=== PATIENT | female | born 1955 | race African-American/Black ===

== ENCOUNTER 2020-05-31 19:44 | Inpatient (IN) | payer OTHER, MEDICAID ==
[~2020-05-31] VITALS: Ht 167.6 cm; Wt 96.0 kg
[2020-05-31 20:59] LABS: Hematocrit 22.8 % (36.0-46.0); INR 1.04 (0.9-1.15); Mean Corpuscular Hemoglobin 20.2 pg (28.0-32.0); Mean Corpuscular Hgb Conc. 29.6 g/dL (32.0-36.0); Mean Corpuscular Volume 68.1 fL (80.0-100.0); Partial Thromboplastin Time 24.7 sec (23.0-31.2); Platelet Count (auto) 653 10^3/uL (140-450); Red Blood Cells 3.35 10^6/uL (4.0-5.20)
[2020-05-31] MEDS ORDERED: ASPirin 81 mg TAB PO ONE (21:00)
[2020-05-31 21:03] LABS: Red Cell Distribution Width 22.1 % (11.8-14.3)
[2020-05-31 21:05] LABS: Albumin 3.7 g/dL (3.4-5.0); Anion Gap 8 (5-15); Blood Urea Nitrogen 7 mg/dL (7-18); Calcium 8.5 mg/dL (8.5-10.1); Carbon Dioxide 22 mmol/L (21-32); Chloride 105 mmol/L (98-107); Glucose 76 mg/dL (74-106); Magnesium 2.1 mg/dL (1.6-2.6); Potassium 3.2 mmol/L (3.5-5.1); Sodium 135 mmol/L (136-145)
[2020-05-31 21:06] LABS: Hemoglobin 6.7 g/dL (12.2-16.2)
[2020-05-31 21:07] LABS: Band Neutrophils % (manual) 0; Basophils % (manual) 0 (0.0-2.0); Blast Cells 0; Eosinophils % (manual) 0 (0-7); Metamyelocytes % 0; Myelocytes % 0; Promyelocytes % 0; Reactive Lymphocytes 0
[2020-05-31 21:12] LABS: Alanine Aminotransferase 13 U/L (13-56); Alkaline Phosphatase 87 U/L (45-117); Aspartate Aminotransferase 8 U/L (15-37); BUN/Creatinine Ratio 8.6; Bilirubin, Total 0.5 mg/dL (0.2-1.0); GFR African American 92 mL/min; GFR Non-African American 76 mL/min
[2020-05-31 22:23] LABS: Urine Bacteria NONE SEEN /hpf (None Seen); Urine Blood TRACE /uL (Negative); Urine Specific Gravity 1.002 (1.001-1.035); Urine WBC <1 /hpf (0 - 5)
[2020-05-31 23:11] LABS: Lymphocytes % (manual) 31 (10.0-50.0); Monocytes % (manual) 4 (0-12)
[2020-05-31] MEDS ORDERED: LEVOTHYROXINE SODIUM 100 MCG/5 ML INJ IV ONE (23:15)
[2020-05-31] MEDS ORDERED: ACETAMINOPHEN 325 MG TAB PO PRN (23:15)
[2020-05-31] MEDS ORDERED: ONDANSETRON HCL 4 MG/2 ML VIAL IV PRN (23:15)
[2020-05-31] MEDS ORDERED: MORPHINE SULF INJ 2 MG/ML SYRINGE 1ML IV PRN (23:15)
[2020-05-31] MEDS ORDERED: NITROGLYCERIN 0.4 MG SL TAB SL PRN (23:15)
[2020-05-31 23:54] VITALS: BP 114/72
[2020-06-01] VITALS (9 sets, daily range): BP systolic 96–123; BP diastolic 56–74
[2020-06-01] MEDS: SODIUM CHLORIDE 0.9% 1,000 ML IV SCH ×4 (01:24→22:12)
[2020-06-01] MEDS: POTASSIUM CHL 20MEQ/100ML 100 ML IV SCH ×2 (01:25→03:35)
[2020-06-01 07:20] LABS: Hemoglobin 7.9 g/dL (12.2-16.2); White Blood Cell 5.8 10^3/uL (4.4-10.8)
[2020-06-01 07:21] LABS: Mean Corpuscular Hemoglobin 21.7 pg (28.0-32.0); Mean Corpuscular Hgb Conc. 30.4 g/dL (32.0-36.0); Mean Corpuscular Volume 71.5 fL (80.0-100.0); Platelet Count (auto) 566 10^3/uL (140-450); Red Blood Cells 3.64 10^6/uL (4.0-5.20)
[2020-06-01 07:27] LABS: % Iron Saturation 10.2 % (15-50); CRP High Sensitivity 0.3 mg/dL (< 0.3); Calcium 8.5 mg/dL (8.5-10.1)
[2020-06-01 07:41] LABS: Red Cell Distribution Width 24.1 % (11.8-14.3)
[2020-06-01 07:42] LABS: Band Neutrophils % (manual) 0; Basophils % (manual) 0 (0.0-2.0); Blast Cells 0; Metamyelocytes % 0; Myelocytes % 0; Promyelocytes % 0
[2020-06-01] MEDS: PANTOPRAZOLE 40 MG/10 ML VIAL INJ IV SCH (09:09)
[2020-06-01] MEDS: CLOPIDOGREL BISULFATE 75 MG TAB PO SCH (09:09)
[2020-06-01] MEDS ORDERED: LORazepam 2MG/ML-1ML VIAL IV ONE (09:45)
[2020-06-01] MEDS ORDERED: PIPERACILLIN-TAZOB 3.375GM 100 ML IV ONE (11:30)
[2020-06-01 11:45] LABS: Eosinophils % (manual) 1 (0-7); Lymphocytes % (manual) 36 (10.0-50.0); Monocytes % (manual) 4 (0-12); Reactive Lymphocytes 1
[2020-06-01] MEDS ORDERED: PIPERACILLIN-TAZOB 3.375GM 100 ML IV SCH (12:00)
[2020-06-01] MEDS ORDERED: levoFLOXacin 500MG 100 ML IV ONE (12:45)
[2020-06-01 13:26] LABS: % Iron Saturation 5.7 % (15-50)
[2020-06-01] MEDS ORDERED: SODIUM CHLORIDE LOCK 10 ML ONE (13:28)
[2020-06-01] MEDS ORDERED: LIDOCAINE VISCOUS 2% 15ML UD ONE (13:28)
[2020-06-01] MEDS ORDERED: fentaNYL CITRATE 100 MCG/2 ML VL ONE (13:28)
[2020-06-01] MEDS ORDERED: MIDAZOLAM HCL 5 MG/ML-1ML VIAL ONE (13:28)
[2020-06-01] MEDS ORDERED: diphenhdrAMINE HCL 50 MG/1 ML VL ONE (13:28)
[2020-06-01] MEDS: MORPHINE SULFATE 4 MG/ML SYR/VIAL IV PRN (18:30)
[2020-06-01] MEDS ORDERED: ENOXAPARIN SOD 40 MG/0.4 ML SYRINGE SC ONE (20:15)
[2020-06-01 20:50] LABS: Cholesterol 147 mg/dL (< 200)
[2020-06-01 20:53] LABS: HDL Cholesterol 39 mg/dL (40-59); LDL Cholesterol 104 mg/dL (< 100); Triglycerides 65 mg/dL (< 150)
[2020-06-01] MEDS ORDERED: ATORVASTATIN 20 MG TAB PO SCH (22:00)
[2020-06-02 05:00] VITALS: BP 112/71
[2020-06-02 06:21] LABS: Mean Corpuscular Hemoglobin 21.8 pg (28.0-32.0); Mean Corpuscular Hgb Conc. 30.7 g/dL (32.0-36.0); Mean Corpuscular Volume 71.1 fL (80.0-100.0); Platelet Count (auto) 546 10^3/uL (140-450); Red Blood Cells 3.65 10^6/uL (4.0-5.20); White Blood Cell 6.5 10^3/uL (4.4-10.8)
[2020-06-02 06:30] LABS: Band Neutrophils % (manual) 0; Basophils % (manual) 0 (0.0-2.0); Blast Cells 0; Eosinophils % (manual) 0 (0-7); Metamyelocytes % 0; Myelocytes % 0; Promyelocytes % 0; Reactive Lymphocytes 0; Red Cell Distribution Width 23.4 % (11.8-14.3)
[2020-06-02 06:34] LABS: Calcium 8.4 mg/dL (8.5-10.1); Potassium 3.8 mmol/L (3.5-5.1)
[2020-06-02 06:36] LABS: BUN/Creatinine Ratio 13.3
[2020-06-02 07:11] LABS: Lymphocytes % (manual) 28 (10.0-50.0); Monocytes % (manual) 6 (0-12)
[2020-06-02] MEDS: MORPHINE SULFATE 4 MG/ML SYR/VIAL IV PRN (08:34)
[2020-06-02] MEDS: SODIUM CHLORIDE 0.9% 1,000 ML IV SCH (08:35)
[2020-06-02 09:00] VITALS: BP 103/84
[2020-06-02] MEDS ORDERED: levoFLOXacin 500MG 100 ML IV SCH (10:00)
[2020-06-02] MEDS: CLOPIDOGREL BISULFATE 75 MG TAB PO SCH (10:13)
[2020-06-02] MEDS: PANTOPRAZOLE 40 MG/10 ML VIAL INJ IV SCH (10:13)
[2020-06-02] MEDS ORDERED: LACTULOSE 20Gm/30ML SOLN PO ONE (10:45)
[2020-06-02 13:00] VITALS: BP 130/77
== END 2020-06-02 14:14 | disposition home health service (06) | DRG 47 ==
LOC: ER 19:44 → TELE 19:45 → TELE-CENTR 23:41
PROVIDERS: ADMIT Hospitalist; ATTEND Hospitalist
PROC: 30233N1 Transfusion of Nonautologous Red Blood Cells into Peripheral Vein, Percutaneous Approach (ICD-10-PCS; principal; 2020-05-31)
PROC: 0DB68ZX Excision of Stomach, Via Natural or Artificial Opening Endoscopic, Diagnostic (ICD-10-PCS; 2020-06-01)
DX: G45.9 Transient cerebral ischemic attack, unspecified (principal); D50.9 Iron deficiency anemia, unspecified; K29.70 Gastritis, unspecified, without bleeding; I10 Essential (primary) hypertension; F32.9 Major depressive disorder, single episode, unspecified; E03.9 Hypothyroidism, unspecified; E66.9 Obesity, unspecified; E78.5 Hyperlipidemia, unspecified; F41.9 Anxiety disorder, unspecified; F17.210 Nicotine dependence, cigarettes, uncomplicated; Z88.8 Allergy status to other drugs, medicaments and biological substances; Z88.0 Allergy status to penicillin; Z68.34 Body mass index [BMI] 34.0-34.9, adult
CPT/HCPCS: 36415; 36430; 43239; 70450; 71045; 78582; 80048; 80053; 80061; 81001; 82728; 83540; 83550; 83605; 83735; 83880; 84484; 85007; 85027; 85379; 85610; 85652; 85730; 86141; 86850; 86900; 86901; 86920; 87040; 93306; 93886; 96365; 96375; C9113; G0378; J1956; J2250; J3480; J3490